=== PATIENT | female | born 1945 | race Two or more races ===

== ENCOUNTER 2018-06-11 15:51 | Emergency (ER) | payer OTHER ==
[~2018-06-11] VITALS: Ht 162.6 cm; Wt 55.0 kg
[2018-06-11 18:43] VITALS: BP 122/80
== END 2018-06-11 18:43 | disposition home or self-care (01) ==
LOC: ER 15:51
DX: I83.892 Varicose veins of left lower extremity with other complications (principal); Z88.5 Allergy status to narcotic agent
CPT/HCPCS: 99283